=== PATIENT | female | born 1930 | race Caucasian/White ===

== ENCOUNTER 2018-05-25 15:23 | Emergency (ER) | payer OTHER ==
[~2018-05-25] VITALS: Ht 172.7 cm; Wt 108.4 kg
--- NOTE | 2018-05-25 15:25 | NUR ---
BIB [facility] FROM HOME 87 YEAR OLD FEMALE ,C/O PROGRESSIVE WEAKNESS X "FEW DAYS", ALERT AND ORIENTED X4, BREATHING EVEN AND UNLABORED WITH NO DISTRESS NOTED. SKIN WARM TO [facility] AND INTACT. AWAITING TO BE SEEN BY
--- NOTE | 2018-05-25 15:28 | NUR ---
PATIENT NOTED WITH LEFT FA SKIN TEAR WITH NO ACTIVE BLEEDING. WILL CONTINUE TO MONITOR
[2018-05-25] MEDS ORDERED: IPRATROPIUM NEB FS 0.5 MG/2.5 ML AMPUL.NEB ONE (16:33)
[2018-05-25] MEDS ORDERED: ALBUTEROL FS 2.5 MG/3 ML VIAL.NEB ONE (16:33)
[2018-05-25] MEDS: ALBUTEROL FS 2.5 MG/3 ML VIAL.NEB NEB ONE (16:41)
[2018-05-25] MEDS: IPRATROPIUM NEB FS 0.5 MG/2.5 ML AMPUL.NEB NEB ONE (16:41)
--- NOTE | 2018-05-25 16:45 | NUR ---
PATIENT REFUSED LAB DRAW, NOTIFIED
--- NOTE | 2018-05-25 17:00 | NUR ---
PATIENT REFUSED LABS AGAIN, PATIENT STATED SHE JUST WANTS TO GO HOME. MADE AWARE.
--- NOTE | 2018-05-25 18:06 | NUR ---
PATIENT SIGNED AMA, FORMED SIGNED MD MADE AWARE.
[2018-05-25 18:09] VITALS: BP 133/74
--- NOTE | 2018-05-25 18:10 | NUR ---
Patient discharged to home in stable condition. Written and verbal after care instructions given. Patient verbalizes understanding of instruction.
== END 2018-05-25 18:10 | disposition left against medical advice (07) ==
LOC: EDBD 15:25 → ER 15:25
DX: J98.01 Acute bronchospasm (principal); J81.1 Chronic pulmonary edema; I10 Essential (primary) hypertension; I48.91 Unspecified atrial fibrillation; E03.9 Hypothyroidism, unspecified; E11.9 Type 2 diabetes mellitus without complications; Z98.890 Other specified postprocedural states; Z85.3 Personal history of malignant neoplasm of breast; Z88.0 Allergy status to penicillin; Z88.8 Allergy status to other drugs, medicaments and biological substances; Z60.2 Problems related to living alone
CPT/HCPCS: 71045; 93005; 94640 ×2; 99284; A4606